=== PATIENT | male | born 1960 | race Caucasian/White ===

== ENCOUNTER 2019-06-29 17:31 | Emergency (ER) | payer MEDICAID ==
[2019-06-29] MEDS: TETRACAINE 0.5% 4 ML OPH BOTH EYES (18:27)
[2019-06-29] MEDS: FLUORESCEIN STRIP BOTH EYES (18:27)
== END 2019-06-29 19:45 | disposition home or self-care (01) ==
LOC: FTE 17:31
DX: S05.02XA Injury of conjunctiva and corneal abrasion without foreign body, left eye, initial encounter (principal); X58.XXXA Exposure to other specified factors, initial encounter; Y92.9 Unspecified place or not applicable
CPT/HCPCS: 99283; Z7502